=== PATIENT | male | born 1985 | race Caucasian/White ===

== ENCOUNTER 2017-01-19 21:10 | Emergency (ER) | payer OTHER ==
[~2017-01-19] VITALS: Ht 185.4 cm; Wt 90.3 kg
[~2017-01-19 21:10] MED LIST: ACETAMINOPHEN-1 EAC1 ORAL; ATARAX25 MG ORAL; BACTRIM DS TAB1 EAC1 ORAL; IBUPROFEN600 MG ORAL; NORCO 5-325 TA1 EACH ORAL; PERCOCET 5-3251 EACH ORAL; PREDNISONE20 MG ORAL; QUESTRAN POWDER4 GM ORAL; URSODIOL300 MG ORAL; XANAX2 MG ORAL
--- NOTE | 2017-01-19 22:07 | Emergency Room Report ---
History of Present Illness General Chief Complaint: Edema Source: Patient Present Illness HPI This is a 31-year-old male with a history of heroin abuse. He is currently in a rehabilitation center and taking methadone. Also taking Xanax for anxiety. He presents with chief complaint of pedal edema for the last couple weeks. Worse with standing. Better when he elevate his leg. No shortness of breath. No fever or chills. He also complaining of a rash to the forehead. Has been scratching it. Denies any other complaint. Allergies: Coded Allergies: No Known Allergies (Unverified , 02/19/14) Patient History Past Medical History: see triage record, old chart reviewed Past Surgical History: other Pertinent Family History: none Social History: Reports: drug use Immunizations: other Reviewed Nursing Documentation: PMH: Agreed, PSxH: Agreed Nursing Documentation-PMH Past Medical History: No Stated History Hx Cardiac Problems: No Hx Hypertension: Yes Hx Cancer: No Hx Gastrointestinal Problems: Yes - gall stones History Of Psychiatric Problem: Yes - ANXIETY Hx Neurological Problems: No Hx Seizures: Yes Review of Systems Eye: Denies: blurred vision, eye pain ENT: Denies: ear pain, nose congestion, throat swelling Respiratory: Denies: cough, shortness of breath Cardiovascular: Denies: chest pain, palpitations Gastrointestinal: Denies: abdominal pain, diarrhea, nausea, vomiting Musculoskeletal: Denies: back pain, joint pain Skin: Denies: rash Neurological: Denies: headache, numbness Endocrine: Denies: increased thirst, increased urine Hematologic/Lymphatic: Denies: easy bruising All Other Systems: negative except mentioned in HPI Physical Exam Vital Signs Date Time Temp Pulse Resp B/P Pulse Ox O2 Delivery O2 Flow Rate FiO2 01/19/17 21:17 98.1 95 16 110/81 96 Room Air vitals normal Sp02 EP Interpretation: reviewed, normal General Appearance: well appearing, no apparent distress, alert Head: normocephalic, atraumatic Eyes: bilateral eye EOMI, bilateral eye PERRL ENT: hearing grossly normal, normal pharynx Neck: full range of motion, supple, no meningismus Respiratory: chest non-tender, lungs clear, normal breath sounds Cardiovascular #1: regular rate, rhythm, no murmur Gastrointestinal: normal bowel sounds, non tender, no mass, no organomegaly, no bruit, non-distended Musculoskeletal: back normal, gait/station normal, normal range of motion, swelling - 1+ pitting edema bilaterally. Neurologic: alert, oriented x3 Psychiatric: mood/affect normal Skin: warm/dry, abrasions - Abrasion from skin Picking on forehead and face. Medical Decision Making Diagnostic Impression: Primary Impression: Pedal edema Additional Impression: Cellulitis, face ER Course Patient presents with pedal edema. Unlikely to be bilateral DVT. No evidence of compartment syndrome. He has not been active for the last couple weeks. He' s been laying been eating ice cream. This may explain edema. He may have a cellulitis from picking at his skin. He is otherwise stable. No evidence of any abscess. We'll discharge home. Lab Results Impression labs are normal Last Vital Signs Date Time Temp Pulse Resp B/P Pulse Ox O2 Delivery O2 Flow Rate FiO2 01/19/17 21:26 95 16 Room Air 01/19/17 21:17 98.1 110/81 96 Status: improved Disposition: HOME, SELF-CARE Condition: Stable Scripts Mupirocin (BACTROBAN CR) 15 Gm Cream..g. 1 APPLIC TOPIC THREE TIMES A DAY, #30 GM Prov: HOMERO SHANE M.D. 01/19/17 Trimethoprim/Sulfamethoxazole 160/800* (BACTRIM DS TABLET*) 1 Each Tablet 1 TAB ORAL Q12H, #14 TAB 0 Refills Prov: HOMERO SHANE M.D. 01/19/17 Furosemide* (LASIX*) 20 Mg Tablet 20 MG ORAL DAILY, #7 TAB Prov: HOMERO SHANE M.D. 01/19/17 Patient Instructions: Peripheral Edema Additional Instructions: Followup with your DrEctor in 7 days. Be more active. Return if symptom worsen. HOMERO SHANE M.D. Jan 19, 2017 22:07
[2017-01-19 22:17] LABS: BASOPHILS % (AUTO) 1.2 % (0.0-2.0); EOSINOPHILS % (AUTO) 1.6 % (0.0-3.0); LYMPHOCYTES % (AUTO) 39.2 % (20.0-45.0); MEAN CORPUSCULAR HEMOGLOBIN 31.1 PG (27.0-31.0); MEAN CORPUSCULAR HGB CONC 34.5 G/DL (32.0-36.0); MEAN CORPUSCULAR VOLUME 90 FL (80-99); MEAN PLATELET VOLUME 5.2 FL (6.5-10.1); MONOCYTES % (AUTO) 2.8 % (1.0-10.0); NEUTROPHILS % (AUTO) 55.2 % (45.0-75.0); PLATELET COUNT 288 K/UL (150-450); RED BLOOD COUNT 4.05 M/UL (4.70-6.10); RED CELL DISTRIBUTION WIDTH 11.1 % (11.6-14.8); WHITE BLOOD COUNT 6.8 K/UL (4.8-10.8)
[2017-01-19 22:27] LABS: ALANINE AMINOTRANSFERASE 37 U/L (3-41); ALBUMIN/GLOBULIN RATIO 1.3 (1.0-2.7); ANION GAP 15 (5-15); ASPARTATE AMINO TRANSFERASE 31 U/L (5-40); CALCIUM 9.3 mg/dL (8.6-10.2); CARBON DIOXIDE 28 mEQ/L (20-30); CHLORIDE 95 mEQ/L (98-107); CREATININE 0.8 mg/dL (0.7-1.2); GLOMERULAR FILTRATION RATE > 60 mL/min (>60); HEMOLYSIS 118; POTASSIUM 4.6 mEQ/L (3.4-4.9); SODIUM 138 mEQ/L (135-145); TOTAL PROTEIN 7.4 g/dL (6.6-8.7)
[2017-01-19 22:47] LABS: APPEARANCE,URINE CLEAR; KETONES,URINE NEGATIVE (NEGATIVE); LEUKOCYTE ESTERASE ,URINE NEGATIVE (NEGATIVE); NITRITE,URINE NEGATIVE (NEGATIVE); PH,URINE 7 (4.5-8.0); PROTEIN,URINE NEGATIVE (NEGATIVE); UROBILINOGEN,URINE NORMAL MG/DL (0.0-1.0)
[2017-01-19] MEDS ORDERED: BACTROBAN15 GM TOPIC (22:56)
[2017-01-19] MEDS ORDERED: BACTRIM DS TAB1 EAC1 ORAL (22:56)
[2017-01-19] MEDS ORDERED: FUROSEMIDE20 M1 ORAL (22:56)
[2017-01-19 23:03] VITALS: BP 112/71
[2017-01-19 23:04] VITALS: BP 110/81
[2017-01-19 23:08] LABS: BACTERIA,URINE OCCASIONAL /HPF; RBC,URINE 0-2 /HPF (0 - 0); WBC,URINE 0-2 /HPF (0 - 0)
== END 2017-01-19 23:10 | disposition home or self-care (01) ==
LOC: EMR 22:38
DX: R60.0 Localized edema (principal); L03.211 Cellulitis of face; F41.9 Anxiety disorder, unspecified; I10 Essential (primary) hypertension
CPT/HCPCS: 36415; 80053; 80300; 81001; 85025; 96374; 99284; J1940

== ENCOUNTER 2017-04-07 17:41 | Emergency (ER) | payer MEDICAID, OTHER ==
[~2017-04-07] VITALS: Ht 185.4 cm; Wt 90.7 kg
[~2017-04-07 17:41] MED LIST changes: +BACTROBAN15 GM TOPIC; +FUROSEMIDE20 M1 ORAL
[2017-04-07 18:05] VITALS: BP 114/69
[2017-04-07] MEDS ORDERED: Metoclopramide 10mg/2ml Inj IVP ONE (18:15)
[2017-04-07 18:45] LABS: BASOPHILS % (AUTO) 0.2 % (0.0-2.0); LYMPHOCYTES % (AUTO) 12.6 % (20.0-45.0); MEAN CORPUSCULAR HEMOGLOBIN 31.9 PG (27.0-31.0); MEAN CORPUSCULAR VOLUME 91 FL (80-99); MEAN PLATELET VOLUME 6.6 FL (6.5-10.1); MONOCYTES % (AUTO) 4.7 % (1.0-10.0); NEUTROPHILS % (AUTO) 82.4 % (45.0-75.0); PLATELET COUNT 391 K/UL (150-450); RED BLOOD COUNT 4.64 M/UL (4.70-6.10); RED CELL DISTRIBUTION WIDTH 11.2 % (11.6-14.8); WHITE BLOOD COUNT 12.3 K/UL (4.8-10.8)
[2017-04-07 19:07] LABS: ALANINE AMINOTRANSFERASE 16 U/L (3-41); ALBUMIN/GLOBULIN RATIO 1.5 (1.0-2.7); ANION GAP 20 (5-15); ASPARTATE AMINO TRANSFERASE 15 U/L (5-40); CALCIUM 10.4 mg/dL (8.6-10.2); CARBON DIOXIDE 24 mEQ/L (20-30); CHLORIDE 95 mEQ/L (98-107); CREATININE 0.9 mg/dL (0.7-1.2); GLOMERULAR FILTRATION RATE > 60 mL/min (>60); HEMOLYSIS 0; LIPASE 17 U/L (< 60); POTASSIUM 3.4 mEQ/L (3.4-4.9); SODIUM 139 mEQ/L (135-145); TOTAL PROTEIN 8.8 g/dL (6.6-8.7)
[2017-04-07 19:15] VITALS: BP 110/71
--- NOTE | 2017-04-07 19:38 | Emergency Room Report ---
History of Present Illness General Chief Complaint: Abdominal Pain Source: Patient (FLO CARMONA) Present Illness HPI 31 y/o male in police custody c/o med clearance and c/o abd pain x 1 day. States that he was eating cereal when he started having abd pain assoc with n/v/ d. States he has blood in his vomit and his stool. States that he has no provoking or relieving factors and has not taking medication for his sxs. States that he has no hx of GI issues and states that he can only tolerate water. Denies any current fever, chills, body aches, back pain, neck pain, photophobia, phonophobia, CP, SOB or headache. (FLO CARMONA) Allergies: Coded Allergies: No Known Allergies (Unverified , 02/19/14) Patient History Past Medical History: see triage record Past Surgical History: none Pertinent Family History: none Reviewed Nursing Documentation: PMH: Agreed, PSxH: Agreed (FLO CARMONA) Nursing Documentation-PMH Past Medical History: No Stated History Hx Cardiac Problems: No Hx Hypertension: Yes Hx Cancer: No Hx Gastrointestinal Problems: Yes - gall stones Hx Neurological Problems: No Hx Seizures: Yes (FLO CARMONA) Review of Systems All Other Systems: negative except mentioned in HPI (FLO CARMONA) Physical Exam Vital Signs Date Time Temp Pulse Resp B/P (MAP) Pulse Ox O2 Delivery O2 Flow Rate FiO2 04/07/17 17:55 98.1 76 18 114/69 100 Room Air Sp02 EP Interpretation: reviewed, normal General Appearance: no apparent distress, alert, GCS 15, non-toxic Head: normocephalic, atraumatic Eyes: bilateral eye normal inspection, bilateral eye PERRL ENT: hearing grossly normal, normal pharynx, no angioedema, normal voice Neck: full range of motion, supple/symm/no masses Respiratory: chest non-tender, lungs clear, normal breath sounds, speaking full sentences Cardiovascular #1: regular rate, rhythm, no edema Gastrointestinal: normal bowel sounds, soft, non-distended, no hernia, no rebound, tenderness - x 4 Rectal: deferred Musculoskeletal: digits/nails normal, gait/station normal Neurologic: alert, oriented x3, responsive, motor strength/tone normal, sensory intact, speech normal Skin: normal color, no rash, warm/dry, well hydrated (FLO CARMONA) Medical Decision Making PA Attestation Dr. Rasmussen is my supervising physician with whom patient management has been discussed with. (FLO CARMONA) ER Course Pt. presents to the ED c/o abd pain Differential diagnosis includes appendicitis, diverticulitis, gastroenteritis, abdominal hernia, pancreatitis, cholecystitis, nephrolithiasis, and testicular torsion. Vital signs: are WNL, pt. is afebrile ORDERS / ED INTERVENTIONS: My Orders - FLO CARMONA Procedure Category Date Status Time Vital Signs CARE 04/07/17 Transmitted 18:13 Iv Access / Saline CARE 04/07/17 Transmitted Lock 18:13 Nothing By Mouth Diet DIET 04/08/17 Transmitted Breakfast Cbc W/ Differential LAB 04/07/17 Complete 18:13 CMP LAB 04/07/17 Complete 18:13 Lipase LAB 04/07/17 Complete 18:13 Urinalysis Reflex LAB 04/07/17 Complete Microscopy 18:13 Metoclopramide PHA 04/07/17 Complete (Reglan) 18:15 Ns 1000ml (Sodium PHA 04/07/17 Complete Chloride 1000ml Bag) 18:[address] 04/07/17 Taken W/Contrast 18:13 Saline 10ml Flush PHA 04/07/17 In Process (Saline 10ml Flush) 18:15 Drug Screen Urine LAB 04/07/17 In Process 18:13 TRANSFER OF CARE: At the end of my shift, CT report was still pending with suspected stone or pyelonephritis to be ruled out, care was transferred to Dr. Rasmussen who this case has been discussed with and has co-managed with me. Laboratory Tests Test 04/07/17 18:30 04/07/17 20:20 White Blood Count 12.3 K/UL (4.8-10.8) H Red Blood Count 4.64 M/UL (4.70-6.10) L Hemoglobin 14.8 G/DL (14.2-18.0) Hematocrit 42.2 % (42.0-52.0) Mean Corpuscular Volume 91 FL (80-99) Mean Corpuscular Hemoglobin 31.9 PG (27.0-31.0) H Mean Corpuscular Hemoglobin Concent 35.0 G/DL (32.0-36.0) Red Cell Distribution Width 11.2 % (11.6-14.8) L Platelet Count 391 K/UL (150-450) Mean Platelet Volume 6.6 FL (6.5-10.1) Neutrophils (%) (Auto) 82.4 % (45.0-75.0) H Lymphocytes (%) (Auto) 12.6 % (20.0-45.0) L Monocytes (%) (Auto) 4.7 % (1.0-10.0) Eosinophils (%) (Auto) 0.0 % (0.0-3.0) Basophils (%) (Auto) 0.2 % (0.0-2.0) Sodium Level 139 mEQ/L (135-145) Potassium Level 3.4 mEQ/L (3.4-4.9) Chloride Level 95 mEQ/L (98-107) L Carbon Dioxide Level 24 mEQ/L (20-30) Anion Gap 20 (5-15) H Blood Urea Nitrogen 9 mg/dL (7-23) Creatinine 0.9 mg/dL (0.7-1.2) Estimate Glomerular Filtration Rate > 60 mL/min (>60) Glucose Level 111 mg/dL (74-106) H Calcium Level 10.4 mg/dL (8.6-10.2) H Total Bilirubin 0.5 mg/dL (0.0-1.2) Aspartate Amino Transferase (AST) 15 U/L (5-40) Alanine Aminotransferase (ALT) 16 U/L (3-41) Alkaline Phosphatase 111 U/L (40-129) Total Protein 8.8 g/dL (6.6-8.7) H Albumin 5.3 g/dL (3.5-5.2) H Globulin 3.5 g/dL Albumin/Globulin Ratio 1.5 (1.0-2.7) Lipase 17 U/L (< 60) Urine Color Yellow Urine Appearance Clear Urine pH 6 (4.5-8.0) Urine Specific [place] 1.020 (1.005-1.035) Urine Protein 2+ (NEGATIVE) H Urine Glucose (UA) Negative (NEGATIVE) Urine Ketones 3+ (NEGATIVE) H Urine Occult Blood 2+ (NEGATIVE) H Urine Nitrite Negative (NEGATIVE) Urine Bilirubin Negative (NEGATIVE) Urine Urobilinogen Normal MG/DL (0.0-1.0) Urine Leukocyte Esterase 2+ (NEGATIVE) H Urine RBC 2-4 /HPF (0 - 0) H Urine WBC 2-4 /HPF (0 - 0) Urine Squamous Epithelial Cells None /LPF (NONE/OCC) Urine Bacteria None /HPF (NONE) Urine Mucus Few /LPF (NONE/OCC) H Urine Opiates Screen Pending Urine Barbiturates Screen Pending Phencyclidine (PCP) Screen Pending Urine Amphetamines Screen Pending Urine Benzodiazepines Screen Pending Urine Cocaine Screen Pending Urine Marijuana (THC) Screen Pending (FLO CARMONA P.A.) ER Course 31-year-old male with abdominal pain and diarrhea. Patient appears nontoxic. Patient is tolerating by mouth. Repeat abdominal exam is soft nontender. CT showing possible colitis. No other acute intra-abdominal surgical pathology Patient is safe for discharge to retirement under custody. Strict return precautions discussed with patient. Patient is instructed to take antibiotics. (Trisha Rasmussen M.D.) CT/MRI/US Diagnostic Results CT/MRI/US Diagnostic Results : Imaging Test Ordered: ct abdo pelvis Impression CT ABDOMEN & PELVIS: Compared to 08/21/07. Evaluation of the rectosigmoid colon is limited secondary to poor distention. There is question of some wall thickening of the rectosigmoid colon. Colitis should be considered. No evidence for significant bowel loop dilation to suggest an obstructive process. The appendix is normal. Small nonspecific mesenteric lymph nodes along the right side of the abdomen. Mild nonspecific infiltration of the subcutaneous fat in the pelvis and upper legs. No free intraperitoneal fluid or free intraperitoneal gas. Small low-density lesion in the right kidney which is too small to adequately characterize. The intra-abdominal organs are otherwise unremarkable. (Trisha Rasmussen M.D.) Last Vital Signs Date Time Temp Pulse Resp B/P (MAP) Pulse Ox O2 Delivery O2 Flow Rate FiO2 04/07/17 19:15 81 20 110/71 100 Room Air 04/07/17 18:05 98.1 (FLO CARMONA P.A.) Scripts Metronidazole* (FLAGYL*) 500 Mg Tablet 500 MG ORAL THREE TIMES A DAY, #21 TAB Prov: Trisha Rasmussen M.D. 04/07/17 Ciprofloxacin Hcl* (CIPROFLOXACIN HCL*) 500 Mg Tablet 500 MG ORAL Q12H, #14 TAB 0 Refills Prov: Trisha Rasmussen M.D. 04/07/17 FLO CARMONA Apr 07, 2017 19:37 Trisha Rasmussen M.D. Apr 07, 2017 22:25
[2017-04-07 20:15] VITALS: BP 108/66
[2017-04-07 20:52] LABS: KETONES,URINE 3+ (NEGATIVE); LEUKOCYTE ESTERASE ,URINE 2+ (NEGATIVE); NITRITE,URINE NEGATIVE (NEGATIVE); PH,URINE 6 (4.5-8.0); PROTEIN,URINE 2+ (NEGATIVE); UROBILINOGEN,URINE NORMAL MG/DL (0.0-1.0)
[2017-04-07 20:55] LABS: APPEARANCE,URINE CLEAR
[2017-04-07 21:02] LABS: MUCUS,URINE FEW /LPF (NONE/OCC)
[2017-04-07] MEDS ORDERED: METRONIDAZOLE500 MG ORAL (22:21)
[2017-04-07] MEDS ORDERED: CIPROFLOXACIN500 M2 ORAL (22:21)
[2017-04-07 22:41] VITALS: BP 108/66
--- NOTE | 2017-04-08 11:53 | Diagnostic Imaging Report ---
Clinical Indication: Abdominal pain, nausea, vomiting, diarrhea, blood in stool Technique: Patient given oral contrast. IV administration nonionic contrast. Venous phase spiral acquisition obtained through the abdomen and pelvis. Multiplanar reconstructions were generated. Total dose length product 997 mGycm. CTDIvol(s) 16 mGy. Dose reduction achieved using automated exposure control Comparison: 08/21/2007 Findings: The appendix is normal. Contrast is seen to traverse the entirety of the small bowel and is seen as far distally as the splenic flexure of the colon. No evidence of diverticulosis or diverticulitis. No small bowel distention or small bowel wall thickening. No free or loculated intraperitoneal air or fluid is demonstrated. Distal esophagus, stomach, duodenum are unremarkable. The liver, gallbladder, bile ducts, pancreas, spleen, are unremarkable. Bilateral renal collecting system fullness demonstrated previously is no longer evident. There is a subcentimeter low-attenuation lesion within the right kidney which is too small to characterize. Left kidney is unremarkable. No retroperitoneal or mesenteric mass or adenopathy. No pelvic mass or adenopathy. High attenuation material is seen infiltrating the subcutaneous fat of the bilateral hips, buttocks, and extending into the proximal thighs beyond the edge of the imaging volume. The bones are intact. The included lung bases are clear. Impression: Unusual finding of high attenuation material, likely blood, infiltrating the subcutaneous fat of the bilateral flanks, hips, buttocks, and proximal thighs. Appearance is suggestive of contusion or ecchymosis, although could represent edema. Correlate with clinical findings No acute process otherwise Subcentimeter low-attenuation right renal lesion, too small to characterize, most likely benign simple cortical cysts. No further followup necessary. This agrees with the preliminary interpretation provided overnight by [facility] teleradiology service. The CT scanner at [facility] is accredited by the [employer] and the scans are performed using protocols designed to limit radiation exposure to as low as reasonably achievable to attain images of sufficient resolution adequate for diagnostic evaluation.
== END 2017-04-07 22:41 ==
LOC: EMR 18:43
DX: R10.9 Unspecified abdominal pain (principal); R11.2 Nausea with vomiting, unspecified; R19.7 Diarrhea, unspecified; I10 Essential (primary) hypertension
CPT/HCPCS: 36415; 74177; 80053; 80300; 81003; 83690; 85025; 96361; 96374; 99284; J2765; Q9967

== ENCOUNTER 2017-05-21 23:44 | Emergency (ER) | payer OTHER ==
[~2017-05-21] VITALS: Ht 188 cm; Wt 84.4 kg
[~2017-05-21 23:44] MED LIST changes: +CIPROFLOXACIN500 M2 ORAL; +METRONIDAZOLE500 MG ORAL
[2017-05-22] VITALS: BP 123/82
--- NOTE | 2017-05-22 00:07 | Emergency Room Report ---
History of Present Illness General Chief Complaint: Skin Rash/Abscess Source: Patient Present Illness HPI Patient present with complaints of rash that has started on his facial area fore head scalp area He has now noticed an area on the right back and thigh area Patient fell that there was a rash starting in the upper chest region as well Fairly early Patient reports that he was taken to [facility] 4 days ago With a possible seizure Soon after release from there he noticed the rash developing The area is itchy in nature denies any fevers or chills denies any neck pain or photophobia denies any chest pain or shortness of breath Allergies: Coded Allergies: No Known Allergies (Unverified , 02/19/14) Patient History Past Medical History: see triage record Pertinent Family History: none Reviewed Nursing Documentation: PMH: Agreed, PSxH: Agreed Nursing Documentation-PMH Hx Cardiac Problems: No Hx Hypertension: Yes Hx Cancer: No Hx Gastrointestinal Problems: Yes - gall stones Hx Neurological Problems: No Hx Seizures: Yes Review of Systems All Other Systems: negative except mentioned in HPI Physical Exam Vital Signs Date Time Temp Pulse Resp B/P (MAP) Pulse Ox O2 Delivery O2 Flow Rate FiO2 05/21/17 23:50 98.1 114 16 123/82 97 Room Air Sp02 EP Interpretation: reviewed, normal General Appearance: well appearing, no apparent distress Head: normocephalic, atraumatic Eyes: bilateral eye PERRL, bilateral eye EOMI ENT: normal pharynx, no angioedema Neck: supple, thyroid normal Respiratory: lungs clear Cardiovascular #1: regular rate, rhythm Gastrointestinal: non tender, soft Musculoskeletal: normal inspection Neurologic: alert, oriented x3 Skin: other - Rash involving the forehead facial area, areas of what appear to be small scab formation, small urticaria right posterior thigh, upper chest area does not reveal any obvious urticaria patient that there were small rash starting Lymphatic: no adenopathy Medical Decision Making Diagnostic Impression: Primary Impression: Dermatitis ER Course Patient presents with a nonspecific dermatitis There are no signs of any obvious petechiae or infectious pathology Possible reaction, contact versus medication-clifford Patient is treated symptomatically and requires close followup Last Vital Signs Date Time Temp Pulse Resp B/P (MAP) Pulse Ox O2 Delivery O2 Flow Rate FiO2 05/21/17 23:50 98.1 114 16 123/82 97 Room Air Status: improved Disposition: HOME, SELF-CARE Condition: Improved Scripts Ranitidine Hcl* (ZANTAC*) 150 Mg Tablet 150 MG ORAL TWICE A DAY, #30 TAB Prov: LINDA PATEL D.O. 05/22/17 Diphenhydramine Hcl* (BENADRYL*) 25 Mg Capsule 25 MG ORAL Q6H Y for Itching, #30 CAP Prov: LINDA PATEL D.O. 05/22/17 Prednisone* (PREDNISONE*) 20 Mg Tablet 20 MG ORAL BID, #10 TAB Prov: LINDA PATEL D.O. 05/22/17 Additional Instructions: Patient is provided with the discharge instructions notified to follow up with primary doctor in the next 2-3 days otherwise return to the er with any worsening symptoms. Please note that this report is being documented using [employer] technology. This can lead to erroneous entry secondary to incorrect interpretation by the dictating instrument. LINDA PATEL D.O. May 22, 2017 00:07
[2017-05-22] MEDS ORDERED: Solu-MEDROL 125mg Inj IM ONE (00:15)
[2017-05-22] MEDS ORDERED: RANITIDINE HCL150 MG ORAL (00:31)
[2017-05-22] MEDS ORDERED: BENADRYL25 MG ORAL (00:31)
[2017-05-22] MEDS ORDERED: PREDNISONE20 MG ORAL (00:31)
[2017-05-22 00:48] VITALS: BP 123/82
== END 2017-05-22 01:25 | disposition home or self-care (01) ==
LOC: EMR 05-22 01:25
DX: L30.9 Dermatitis, unspecified (principal); I10 Essential (primary) hypertension
CPT/HCPCS: 96372; 99284; J2930